=== PATIENT | male | born 1985 | race Caucasian/White ===

== ENCOUNTER 2024-10-03 16:49 | Emergency (ER) | payer SELFPAY ==
[2024-10-03 17:13] LABS: Absolute Basophils 0.1 K/uL (0-0.5); Absolute Eosinophils 0.1 K/uL (0-0.5); Absolute Lymphocytes (CBC) 2.7 K/uL (0.7-4.9); Absolute Monocytes 0.6 K/uL (0.1-1.3); Basophils % 0.9 % (0-1.3); Eosinophils % 0.9 % (0-4.4); Hemoglobin 14.6 g/dL (13.6-17.9); Lymphocytes % 28.9 % (15.3-44.8); MCH 32.6 pg (27.0-35.0); MCHC 34.8 g/dL (32.0-36.0); MCV 93.6 fL (80-100); MPV 10.4 fL (7.6-11.3); Monocytes % 5.9 % (3.3-12.3); Neutrophils % 63.4 % (41.7-73.7); Nucleated Red Blood Cells % 0.1 % (0-0); Platelets 174 thou/uL (152-406); RBC Red Blood Cell Count 4.49 M/uL (4.33-5.43); Red Cell Distribution Width 13.5 % (12.1-15.2)
[2024-10-03 17:18] LABS: PT Prothrombin Time 10.8 SECONDS (10-13.0); Protime INR 0.94
[2024-10-03 17:32] LABS: ALT/SGPT 17 U/L (16-61); AST/SGOT 15 U/L (15-37); Albumin 3.2 g/dL (3.4-5.0); Alkaline Phosphatase 72 U/L (45-117); Anion Gap 9.4 mEq/L (5.0-15.0); BUN Blood Urea Nitrogen 10 mg/dL (7-18); Bicarbonate 25 mEq/L (21-32); Bilirubin Total 0.4 mg/dL (0.2-1.0); Globulin 3.3 g/dL (2.3-3.5); Glomerular Filtration Rate 102 ml/min (=/>90); Glucose Level 152 mg/dL (74-106); Magnesium 1.7 mg/dL (1.6-2.4); NT PRO-BNP 312 pg/mL (<125); Potassium 3.4 mEq/L (3.5-5.1); Protein, Total 6.5 g/dL (6.4-8.2); Sodium Level 139 mEq/L (136-145); Troponin High Sensitivity 4.3 pg/mL (<58.9)
--- NOTE | 2024-10-03 18:04 | RAD REPORT ---
EXAM: Chest Single View HISTORY: 39 years Male CHEST PAIN COMPARISON: None. FINDINGS: LUNGS/PLEURA: The lungs are clear. No pleural effusions or pneumothorax. No pulmonary edema. CARDIAC/MEDIASTINUM: The cardiac silhouette is within normal limits. UPPER ABDOMEN: No significant abnormality. BONES: No acute abnormality. LINES/TUBES/OTHER: N/A IMPRESSION: No evidence of acute cardiopulmonary disease.
[2024-10-03 18:31] LABS: Bilirubin Direct < 0.2 mg/dL (0-0.2); Bilirubin Indirect, Calculated 0.2 mg/dL (0.2-0.8)
--- NOTE | 2024-10-03 20:30 | ER ---
Nurse's Notes [facility] Name: Jese Ag Age: 39 yrs Sex: Male : 1985 Arrival Date: 10/03/2024 Time: 16:49 Bed 19 Private MD: Diagnosis: Chest pain, unspecified Presentation: 10/03 16:50 Chief complaint: EMS states: "toned out for CP, SOB, and feeling lightheaded while mb9 sitting. 324 mg of Aspirin given WRITING MANAGER.". Coronavirus screen: At this time, the client does not indicate any symptoms associated with coronavirus-19. Ebola Screen: No symptoms or risks identified at this time. Initial Sepsis Screen: Does the patient meet any 2 criteria? No. Patient's initial sepsis screen is negative. Does the patient have a suspected source of infection? No. Patient's initial sepsis screen is negative. Risk Assessment: Do you want to hurt yourself or someone else? Patient reports no desire to harm self or others. Onset of symptoms was October 03, 2024. 16:50 Method Of Arrival: EMS: [facility] mb9 16:50 Acuity: GABRIELA 2 mb9 Triage Assessment: 16:52 General: Appears uncomfortable, Behavior is cooperative. Pain: Complains of pain in mb9 chest Pain radiates to left side of chest Quality of pain is described as aching, Pain began suddenly. EENT: No signs and/or symptoms were reported regarding the EENT system. Neuro: White Agitation-Sedation Scale (RASS): 0 - Alert and Calm Level of Consciousness is awake, alert, obeys commands, Oriented to person, place, time, situation, Appropriate for age. Cardiovascular: Reports chest pain, lightheadedness, shortness of breath, Heart tones S1 S2 present Patient's skin is warm and dry. Respiratory: Reports shortness of breath Airway is patent Respiratory effort is even, unlabored, Respiratory pattern is regular, symmetrical, Breath sounds are clear bilaterally. GI: Abdomen is flat, non-distended, Bowel sounds present X 4 quads. Abd is soft and non tender X 4 quads. : No signs and/or symptoms were reported regarding the genitourinary system. Derm: Skin is pink, warm \\T\\ dry. Musculoskeletal: Range of motion: intact in all extremities. Historical: - Allergies: 16:51 No Known Allergies; mb9 - Home Meds: 16:51 None [Active]; mb9 - PMHx: 16:51 None; mb9 - PSHx: 16:51 None; mb9 - Immunization history:: Adult Immunizations up to date. - Infectious Disease History:: Denies. - Social history:: Smoking status: Patient reports the use of cigarette tobacco products, smokes one pack cigarettes per day. Screenin:53 [facility] ED Fall Risk Assessment (Adult) History of falling in the last 3 months, mb9 including since admission No falls in past 3 months (0 pts) Confusion or Disorientation No (0 pts) Intoxicated or Sedated No (0 pts) Impaired Gait No (0 pts) Mobility Assist Device Used No (0 pt) Altered Elimination No (0 pt) Score/Fall Risk Level 0 - 2 = Low Risk Oriented to surroundings, Maintained a safe environment, Educated pt \\T\\ family on fall prevention, incl call for assistance when getting out of bed. Abuse screen: Denies threats or abuse. Nutritional screening: No deficits noted. Tuberculosis screening: No symptoms or risk factors identified. Assessment: 16:53 Reassessment: see triage assessment. mb9 18:01 Reassessment: No changes from previously documented assessment. Patient and/or family mb9 updated on plan of care and expected duration. Pain level reassessed. Patient is alert, oriented x 3, equal unlabored respirations, skin warm/dry/pink. 18:55 Reassessment: Patient appears in no apparent distress at this time. No changes from kj2 previously documented assessment. Patient and/or family updated on plan of care and expected duration. Pain level reassessed. 19:28 Reassessment: Patient appears in no apparent distress at this time. No changes from vc1 previously documented assessment. Patient and/or family updated on plan of care and expected duration. Pain level reassessed. Patient is alert, oriented x 3, equal unlabored respirations, skin warm/dry/pink. 20:18 Reassessment: Patient appears in no apparent distress at this time. Patient and/or kj2 family updated on plan of care and expected duration. Pain level reassessed. Patient is alert, oriented x 3, equal unlabored respirations, skin warm/dry/pink. 20:44 Reassessment: Patient appears in no apparent distress at this time. Patient and/or kj2 family updated on plan of care and expected duration. Pain level reassessed. Patient is alert, oriented x 3, equal unlabored respirations, skin warm/dry/pink. Vital Signs: 16:50 BP 152 / 82; Pulse 97; Resp 18; Temp 97.8; Pulse Ox 100% on R/A; Weight 79.38 kg; mb9 Height 6 ft. 1 in. ; Pain 0/10; 18:01 BP 117 / 69; Pulse 78; Resp 18; Pulse Ox 100% on R/A; mb9 19:28 BP 116 / 88; Pulse 76; Resp 13; Pulse Ox 98% ; vc1 20:18 BP 117 / 77; Pulse 64; Resp 20; Pulse Ox 96% ; kj2 20:44 BP 118 / 78; Pulse 68; Resp 20; Temp 98; Pulse Ox 100% on R/A; kj2 16:50 Body Mass Index 23.09 (79.38 kg, 185.42 cm) mb9 16:50 Pain Scale: Adult mb9 ED Course: 16:50 Patient arrived in ED. mb9 16:50 Arm band placed on. mb9 16:51 Triage completed. mb9 16:53 Miguel A Workman RN is Primary Nurse. mb9 16:53 EKG done, by ED staff, reviewed by Heath Muro MD. Maintain EMS IV. Dressing intact. mb9 Good blood return noted. Site clean \\T\\ dry. Gauge \\T\\ site: 20 g right AC. Flushed with 10 mL NS. 16:54 Heath Muro MD is Attending Physician. sp3 16:54 Placed in gown. Bed in low position. Call light in reach. Side rails up X 1. Provided mb9 Education on: press call light if needing anything. Client placed on continuous cardiac and pulse oximetry monitoring. NIBP monitoring applied. monitoring specialist on. 16:54 No provider procedures requiring assistance completed. mb9 17:57 XRAY Chest (1 view) In Process Unspecified. EDMS 18:53 Report given to DEEDEE Zapien. mb9 18:55 Report received from miguel a Peterson RN. kj2 19:07 Lab(s) recollected, by me, sent to lab. td1 19:15 Attending Physician role handed off by Heath Muro MD rt 19:15 Juan Francisco Carmen MD is Attending Physician. rt 20:45 IV discontinued, intact, bleeding controlled, No redness/swelling at site. Pressure kj2 dressing applied. Administered Medications: No medications were administered Medication: 16:54 VIS not applicable for this client. mb9 Outcome: 20:29 Discharge ordered by MD. rt 20:44 Discharged to home ambulatory, kj2 20:44 Condition: stable 20:44 Discharge instructions given to patient, Instructed on discharge instructions, follow up and referral plans. Demonstrated understanding of instructions, follow-up care, 20:56 Patient left the ED. kj2 Signatures: Dispatcher [employer] EDMS Heath Muro MD MD sp3 China Crane RN RN vc1 Miguel A Workman, RN RN mb9 Juan Francisco Carmen MD MD rt Rupali Carrion RN RN kj2 James Avalos td1
--- NOTE | 2024-10-03 20:30 | EDPHYS ---
Physician Documentation [facility] Name: Jese Ag Age: 39 yrs Sex: Male : 1985 Arrival Date: 10/03/2024 Time: 16:49 Bed 19 Private MD: ED Physician Juan Francisco Carmen HPI: 10/03 17:36 This 39 yrs old Male presents to ER via EMS with complaints of Chest Pain, Shortness Of sp3 Breath. 17:36 39-year-old male with no past medical history presents with a now resolved chest pain sp3 and shortness of breath episode approximately 1 hour prior to arrival. Patient has no cardiac history, PE or DVT history, following immobilization, trauma, or any other signs or symptoms on ROS at this time. Pain is described as sharp left-sided but now fully resolved.. Historical: - Allergies: 16:51 No Known Allergies; mb9 - Home Meds: 16:51 None [Active]; mb9 - PMHx: 16:51 None; mb9 - PSHx: 16:51 None; mb9 - Immunization history:: Adult Immunizations up to date. - Infectious Disease History:: Denies. - Social history:: Smoking status: Patient reports the use of cigarette tobacco products, smokes one pack cigarettes per day. ROS: 17:38 Constitutional: Negative for fever, chills, and weight loss, Eyes: Negative for injury, sp3 pain, redness, and discharge, ENT: Negative for injury, pain, and discharge, Neck: Negative for injury, pain, and swelling, Respiratory: Negative for shortness of breath, cough, wheezing, and pleuritic chest pain, Abdomen/GI: Negative for abdominal pain, nausea, vomiting, diarrhea, and constipation, Back: Negative for injury and pain, MS/Extremity: Negative for injury and deformity, Skin: Negative for injury, rash, and discoloration, Neuro: Negative for headache, weakness, numbness, tingling, and seizure, Psych: Negative for depression, anxiety, suicide ideation, homicidal ideation, and hallucinations, Allergy/Immunology: Negative for hives, rash, and allergies, 17:38 All other systems are negative, Exam: 17:39 Constitutional: This is a well developed, well nourished patient who is awake, alert, sp3 and in no acute distress. Head/Face: Normocephalic, atraumatic. Eyes: Pupils equal round and reactive to light, extra-ocular motions intact. Lids and lashes normal. Conjunctiva and sclera are non-icteric and not injected. Cornea within normal limits. Periorbital areas with no swelling, redness, or edema. ENT: Nares patent. No nasal discharge, no septal abnormalities noted. External auditory canals are clear. Oropharynx with no redness, swelling, or masses, exudates, or evidence of obstruction, uvula midline. Mucous membranes moist. Neck: Trachea midline, no thyromegaly or masses palpated, and no cervical lymphadenopathy. Supple, full range of motion without nuchal rigidity, or vertebral point tenderness. No Meningismus. Chest/axilla: Normal chest wall appearance and motion. Nontender with no deformity. No lesions are appreciated. Cardiovascular: Regular rate and rhythm with a normal S1 and S2. No gallops, murmurs, or rubs. Normal PMI, no JVD. No pulse deficits. Respiratory: Lungs have equal breath sounds bilaterally, clear to auscultation and percussion. No rales, rhonchi or wheezes noted. No increased work of breathing, no retractions or nasal flaring. Abdomen/GI: Soft, non-tender, with normal bowel sounds. No distension or tympany. No guarding or rebound. No evidence of tenderness throughout. Back: No spinal tenderness. No costovertebral tenderness. Full range of motion. Skin: Warm, dry with normal turgor. Normal color with no rashes, no lesions, and no evidence of cellulitis. MS/ Extremity: Pulses equal, no cyanosis. Neurovascular intact. Full, normal range of motion. Neuro: Awake and alert, GCS 15, oriented to person, place, time, and situation. Cranial nerves II-XII grossly intact. Motor strength 5/5 in all extremities. Sensory grossly intact. Cerebellar exam normal. Normal gait. Psych: Awake, alert, with orientation to person, place and time. Behavior, mood, and affect are within normal limits. 17:39 ECG was reviewed by the Attending Physician. EKG demonstrates normal sinus rhythm at 98 bpm with normal intervals, normal QRS, normal axis and normal ST/T-segment's without evidence of acute ischemia. Vital Signs: 16:50 BP 152 / 82; Pulse 97; Resp 18; Temp 97.8; Pulse Ox 100% on R/A; Weight 79.38 kg; mb9 Height 6 ft. 1 in. ; Pain 0/10; 18:01 BP 117 / 69; Pulse 78; Resp 18; Pulse Ox 100% on R/A; mb9 19:28 BP 116 / 88; Pulse 76; Resp 13; Pulse Ox 98% ; vc1 20:18 BP 117 / 77; Pulse 64; Resp 20; Pulse Ox 96% ; kj2 20:44 BP 118 / 78; Pulse 68; Resp 20; Temp 98; Pulse Ox 100% on R/A; kj2 16:50 Body Mass Index 23.09 (79.38 kg, 185.42 cm) mb9 16:50 Pain Scale: Adult mb9 MDM: 17:08 Medical Screening Exam initiated sp3 17:40 Data reviewed: vital signs, nurses notes, lab test result(s), EKG, radiologic studies. sp3 ED course: 39-year-old male with a now resolved chest pain and shortness of breath episode. Differential diagnosis includes musculoskeletal pain, anxiety, among others. I am not highly suspicious of acute coronary syndrome, PE, TAD or any other critical process. Vital signs are now normal. EKG is normal. If 2 negative troponins, we will safely discharge patient home. Patient be signed out nighttime physician for final reevaluation and disposition.. 22:18 Differential diagnosis: ACS, nonspecific chest pain, pneumonia. HEART Score: History: rt Slightly Suspicious (0), ECG: Normal (0), Age: < or = 45 years (0), Risk Factors: 1 or 2 risk factors (1), Troponin: < or = 1 x Normal Limit (0), Total Score = 1. Independent interpretation of the following test(s) in the Emergency Department X-Ray: My interpretation is No infiltrate seen on interpretation of x-ray images. Counseling: I had a detailed discussion with the patient and/or guardian regarding the historical points, exam findings, and any diagnostic results supporting the discharge/admit diagnosis, lab results, radiology results, the need for outpatient follow up, to return to the emergency department if symptoms worsen or persist or if there are any questions or concerns that arise at home. 10/03 17:03 Order name: Basic Metabolic Panel; Complete Time: 20:27 mb9 10/03 17:03 Order name: CBC with Diff; Complete Time: 18:30 mb9 10/03 17:03 Order name: LFT's; Complete Time: 20:27 mb9 10/03 17:03 Order name: Magnesium; Complete Time: 20:27 mb9 10/03 17:03 Order name: NT PRO-BNP; Complete Time: 20:27 mb9 10/03 17:03 Order name: PT-INR; Complete Time: 18:30 mb9 10/03 17:03 Order name: Troponin HS; Complete Time: 20:27 mb9 10/03 17:42 Order name: Troponin High Sensitivity: Draw 2 hours after first draw; Complete Time: sp3 20:27 10/03 17:03 Order name: XRAY Chest (1 view); Complete Time: 18:30 mb9 10/03 17:03 Order name: EKG; Complete Time: 17:03 mb9 10/03 17:03 Order name: Cardiac monitoring; Complete Time: 17:03 mb9 10/03 17:03 Order name: EKG - Nurse/Tech; Complete Time: 17:03 mb9 10/03 17:03 Order name: IV Saline Lock; Complete Time: 17:03 mb9 10/03 17:03 Order name: Labs collected and sent; Complete Time: 17:03 mb9 10/03 17:03 Order name: O2 Per Protocol; Complete Time: 17:03 mb9 10/03 17:03 Order name: O2 Sat Monitoring; Complete Time: 17:03 mb9 Administered Medications: No medications were administered Disposition Summary: 10/03/24 20:29 Discharge Ordered Notes: Location: Home rt Problem: new rt Symptoms: have improved rt Condition: Stable rt Diagnosis - Chest pain, unspecified rt Followup: rt - With: Private Physician - When: 2 - 3 days - Reason: Discharge Instructions: - Discharge Summary Sheet rt - Nonspecific Chest Pain, Adult rt Forms: - Medication Reconciliation Form rt - Antibiotic Education rt - Prescription Opioid Use rt - Patient Portal Instructions rt - Leadership Thank You Letter rt Signatures: Dispatcher [employer] Heath Todd MD MD sp3 Alexa Workman RN RN mb9 Juan Francisco Carmen MD MD rt Corrections: (The following items were deleted from the chart) 20:54 17:41 Troponin High Sensitivity+C.LAB.BRZ ordered. EDMS EDMS
[2024-10-03 21:11] VITALS: BP 118/78; TEMP 98; O2SAT 100
== END 2024-10-03 20:56 | disposition home or self-care (01) ==
LOC: ER 16:49
DX: R07.9 Chest pain, unspecified (principal); F17.210 Nicotine dependence, cigarettes, uncomplicated
CPT/HCPCS: 36415; 71045; 80048; 80076; 83735; 83880; 84484; 85025; 85610; 93005; 99284